=== PATIENT | male | born 1965 | race Caucasian/White ===

== ENCOUNTER 2018-07-26 11:08 | Inpatient (IN) ==
--- NOTE | 2018-07-26 11:23 | ERNOTE ---
Date of Service: 07/26/18 Time Seen by Provider: 07/26/18 11:23 Stated Complaint: uri for four days Presenting Symptoms:: cough Source: patient Exam Limitations: no limitations Immunizations: IMMUNIZATION HX Immunizations Up to Date Yes Allergies/Adverse Reactions: Allergies No Known Allergies Allergy (Verified 07/26/18 12:24) Home Medications: HOME MEDICATIONS NK 07/26/18 [Last Taken Unknown] - Pain Score Pain Score #1 Pain Score: 0 - History of Present Ilness Narrative: The patient is a 52 year old male who presents for dyspnea with nonproductive cough which has been present since 07/21/18. There are associated symptoms of fatigue and fever. The patient denies pain. There are no alleviating factors. There are no aggravating factors. Previous treatments have included: current treatment with Azithromycin and Prednisone. The past medical history includes: noncontributory. The social history is positive for alcohol abuse. The patient has had ill contacts at home with exposure to influenza A. Modifying Factors - Worsens: Reports: coughing, deep breath, lying down Associated Symptoms: Reports: cough, shortness of breath, fever/chills. Denies: chest pain/soreness, nasal congestion, nasal drainage, dizziness Review of Systems - Review of Systems Constitutional: Present: fever, chills, fatigue EYE: Present: no symptoms reported ENT: Present: no symptoms reported. Absent: ear pain, nose congestion, nasal drainage, sore throat Respiratory: Present: shortness of breath, cough Cardiology: Present: no symptoms reported. Absent: chest pain Gastrointestinal/Abdominal: Present: nausea, vomiting, diarrhea. Absent: abdominal pain Genitourinary: Present: no symptoms reported. Absent: dysuria Musculoskeletal: Present: no symptoms reported Skin: Present: no symptoms reported. Absent: rash Neurological: Present: no symptoms reported Endocrine: Present: no symptoms reported Hematologic/Lymphatic: Present: no symptoms reported Psych: Present: no symptoms reported All Other Systems: All systems neg except as marked Medical History (Last Reviewed 07/26/18 @ 12:31 by ASHOK Hull) No pertinent past medical history Surgical History: Surgical History (Last Reviewed 07/26/18 @ 12:31 by ASHOK Hull) No pertinent past surgical history Family History: Family History (Last Reviewed 07/26/18 @ 12:31 by ASHOK Hull) Other No pertinent family history Social History: Preferred Language Yakut Alcohol Use heavy Drug Use none No Social History Section defined Physical Exam - Physical Exam General Appearance: Present: wd/wn, moderate distress Head Exam: Present: normal inspection Respiratory: Present: accessory muscle use, decreased breath sounds - diffuse bilateral Cardiovascular/Chest: Present: no murmur, normal peripheral pulses, tachycardia Gastrointestinal/Abdominal: Present: normal bowel sounds, nontender, nondistended, soft, no organomegaly Neurological Exam: Present: alert, oriented, normal mood/affect Skin Exam: Present: normal color, diaphoresis Progress - Date and Time Seen: Date and Time: 07/26/18 12:51 Discussed case with , patient will be admitted for continued treatment for bi-basilar pneumonia, renal insuff and failed outpatient treatment. Patient tachycardic with tachypneia and hypoxia but has remained normotensive during ER visit. - Results and Orders Patient's Lab Results:: I have reviewed the patient's lab results. - Vital Signs Patient's Vital Signs:: I have reviewed the patient's vital signs. Vital Signs: Vital Signs 07/26/18 11:17 Temperature 38.2 C H Respiratory Rate 22 H Blood Pressure 143/85 H - X-Ray X-Ray #1 X-Ray: chest Interpretation: Reviewed by me X-ray Comments: Bi-basilar pneumonia. Reviewed with . - Progress/Reassessment Chief Complaint: Upper Respiratory Symptoms Departure Clinical Impression: Failure of outpatient treatment, Renal insufficiency, Elevated liver enzymes, Alcohol abuse Pneumonia Qualifiers: Pneumonia type: due to unspecified organism Laterality: bilateral Lung location: lower lobe of lung Qualified Code(s): J18.1 - Lobar pneumonia, unspecified organism - Departure Disposition: Still a patient Condition: Fair
[2018-07-26] MEDS ORDERED: ALBUTEROL SULFATE 2.5 MG/0.5 ML VIAL.NEB IH ONE (11:30)
[2018-07-26] MEDS ORDERED: ACETAMINOPHEN 500 MG TABLET PO ONE (11:33)
[2018-07-26 11:48] LABS: Hematocrit 49.3 % (42.0-52.0); Mean Cell Volume 91.6 fl (78-100); Mean Corpuscular Hemoglobin 31.6 pg (27-31); Mean Corpuscular Hgb Conc 34.5 g/dl (32-36); Mean Platelet Volume 11.8 fl (8-11.3); Neutrophil # 5.5 K/mm3 (1.3-6.0); Platelet Count 133 K/mm3 (150-450); Red Blood Count 5.38 M/mm3 (4.7-6.0); Red Cell Distribution Width 12.4 % (11.5-14.0); White Blood Count 6.3 K/mm3 (4.0-10.5)
[2018-07-26 12:00] LABS: Albumin * 2.5 gm/dl (3.4-5.0); Anion Gap 13.7 mmol/L (6.8-13.8); BUN/Creatinine Ratio 15.4 (9.0-21.6); Bilirubin, Total 0.8 mg/dL (0.0-1.1); Ca. Corrected For Albumin 9.3 mg/dL (8.4-10.2); Calcium * 8.4 mg/dL (7.9-10.9); Carbon Dioxide 27.7 mmol/L (24-32.6); Potassium 3.4 mmol/L (3.4-4.6)
[2018-07-26] MEDS: NORMAL SALINE 1,000 ML IV SCH ×2 (12:00→13:06)
[2018-07-26] MEDS ORDERED: cefTRIAXone SODIUM 1,000 MG/100 ML BAG IV ONE (12:14)
[2018-07-26] MEDS ORDERED: NORMAL SALINE 1,000 ML IV PRN ×2 (12:55→15:26)
[2018-07-26] MEDS ORDERED: BENZONATATE 100 MG CAPSULE PO PRN (14:43)
[2018-07-26] MEDS: AZITHROMYCIN 250 MG TABLET PO SCH (15:10)
[2018-07-26] MEDS ORDERED: AZITHROMYCIN 250 MG TABLET PO SCH (15:32)
--- NOTE | 2018-07-26 15:54 | HP ---
Chief Complaint - Chief Complaint Date of Service: 07/26/18 Time of Service: 14:45 Chief Complaint: Cough, shortness of breath History of Present Illness: Kimani Acevedo is a 52-year-old male who presented to ER with cough and shortness of breath. He was seen and the walk-in clinic on July 23. The onset of his symptoms was 2 days earlier on the with shortness of breath and fever. On the he was started on azithromycin and prednisone but his condition has progressed and he presented to ER today. His past medical history includes alcohol abuse. Today's labs showed creatinine elevated at 1.43. His AST was 922 and ALT of 277. The alkaline phosphatase, bilirubin, and albumin are all okay. His lactic acid is elevated at 2.8 and the pro-calcitonin is elevated at 1.83. His oxygen saturation on arrival was 83% on room air and he was titrated to 4 L nasal cannula to get his O2 sat at 93%. He also had a fluid bolus of 1 L normal saline. He was given a gram of Rocephin in the emergency room. Since he failed outpatient therapy and clinically, radiographically, and lab coronado appears to have a pneumonia is admitted to regular hospital inpatient stay. Medical History (Last Updated 07/26/18 @ 13:50 by Neeta Mccarthy RN) No pertinent past medical history Skin cancer of forehead Surgical History: Surgical History (Last Reviewed 07/26/18 @ 13:51 by Neeta Mccarthy RN) No pertinent past surgical history Family History: Family History (Last Updated 07/26/18 @ 13:58 by Neeta Mccarthy RN) Other Acute hemorrhagic infarction of brain Aortic aneurysm and dissection Cancer, colon Diabetes mellitus, insulin dependent (IDDM), controlled Hypertension No pertinent family history Patient's brother is in good health Patient's brother is still living Patient's father is Patient's mother is Patient's sister is father Social History: Patient Lives/Resources With Spouse 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 Smoking Status Former smoker Have you smoked in the past 12 No months Do you dip or chew tobacco No Alcohol Use heavy Drug Use none No Social History Section defined Review Of Systems (GEN) - Review of Systems Generalized/Overall Review: Present: Weakness, Fever, Malaise EENTM: Present: No Symptoms Reported Respiratory: Present: Cough, Shortness of Breath, Wheezing Cardiac: Present: No Symptoms Reported. Absent: Chest Pain, Edema, Palpitations, Syncope Abdominal: Present: No Symptoms Reported Genitourinary: Present: No Symptoms Reported Musculoskeletal: Present: No Symptoms Reported Neurological: Present: No Symptoms Reported Skin: Present: No Symptoms Reported Endocrine: Present: No Symptoms Reported Misc: All systems neg except as marked Immunizations: IMMUNIZATION HX Immunizations Up to Date Yes Allergies/Adverse Reactions: Allergies Allergy/AdvReac Type Severity Reaction Status Date / Time No Known Allergies Allergy Verified 07/26/18 12:24 Home Medications: HOME MEDICATIONS Azithromycin 250 mg PO DAILY 07/26/18 [Last Taken 07/25/18 09:00] Codeine Phosphate/Guaifenesin [Cheratussin AC Syrup] 5 ml PO Q6H PRN 07/26/18 [Last Taken Unknown] predniSONE [Prednisone] 20 mg PO DAILY 07/26/18 [Last Taken Unknown] Exam - Exam Vital Signs: Vital Signs - Last Taken Temp 37.8 C 07/26/18 12:59 Pulse 82 07/26/18 12:59 Resp 20 07/26/18 12:59 BP 127/59 07/26/18 12:59 Pulse Ox 94 07/26/18 12:59 Constitutional: Present: Alert, Oriented x3, Cooperative, Well developed, Well nourished, Moderate distress, Middle aged, Obese ENT Exam: Present: normal ENT inspection, hearing grossly normal, pharynx normal, TMs normal, hard of hearing Eye Exam: bilateral eye: normal inspection, PERRL, EOMI Neck: Present: non-tender, full range of motion, supple, normal inspection, trachea midline, limited range of motion Back Exam: Present: normal inspection, no CVA tenderness, no vertebral tenderness Breasts: Present: Nontender Respiratory: Present: crackles, rhonchi, wheezing, expiration (prolonged), inspiration Cardiovascular/Chest: Present: normal peripheral pulses, regular rate, rhythm, no chest tenderness, no edema, no gallop, no JVD, no murmur, no rub Peripheral Pulses: carotid (R): 2+, carotid (L): 2+, radial (R): 2+, radial (L): 2+ Abdomen: Present: Normal bowel sounds, soft, nontender, nondistended, no rebound tenderness, no hepatospenomegaly, no masses, obese /Rectal: Present: Exam deferred Extremity: Present: normal range of motion, non-tender, normal inspection, no pedal edema, no calf tenderness, normal capillary refill Skin Exam: Present: normal color, warm/dry, no cyanosis Lymphatic: Present: no adenopathy Neurologic: 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: pump 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 II-XII nml as tested Appearance: Present: appropriate appearance, appropriate insight, neat Eye contact: Present: cooperative, good eye contact, normal speech Thoughts: Present: normal thought pattern, no apparent hallucination Diagnostic Studies: Abnormal Lab Results 07/26/18 07/26/18 07/26/18 Range/Units 11:33 11:33 11:33 MCH 31.6 H (27-31) pg Plt Count 133 L (150-450) K/mm3 MPV 11.8 H (8-11.3) fl Neutrophils % 88.0 H (42-75.0) % Lymphocytes % 6.7 L (20-51) % Lymphocytes # 0.42 L (1.5-3.5) k/mm3 Chloride 94 L (97-106) mmol/L Creatinine 1.43 H (0.4-1.4) mg/dL Est GFR (Non-Af Amer) 55 L (60-130) mL/min Random Glucose 130 H (70-110) mg/dL Lactic Acid, Venous 2.8 H* (0.4-2.0) mmol/L AST 922 H (0-48) U/L ALT 277 H (19-67) U/L Albumin 2.5 L (3.4-5.0) gm/dl Procalcitonin (0.05-0.50) ng/mL 07/26/18 Range/Units 11:33 MCH (27-31) pg Plt Count (150-450) K/mm3 MPV (8-11.3) fl Neutrophils % (42-75.0) % Lymphocytes % (20-51) % Lymphocytes # (1.5-3.5) k/mm3 Chloride (97-106) mmol/L Creatinine (0.4-1.4) mg/dL Est GFR (Non-Af Amer) (60-130) mL/min Random Glucose (70-110) mg/dL Lactic Acid, Venous (0.4-2.0) mmol/L AST (0-48) U/L ALT (19-67) U/L Albumin (3.4-5.0) gm/dl Procalcitonin 1.83 H (0.05-0.50) ng/mL Laboratory Results WBC 6.3 K/mm3 (4.0-10.5) 07/26/18 11:33 RBC 5.38 M/mm3 (4.7-6.0) 07/26/18 11:33 Hgb 17.0 gm/dL (13.5-18.0) 07/26/18 11:33 Hct 49.3 % (42.0-52.0) 07/26/18 11:33 MCV 91.6 fl (78-100) 07/26/18 11:33 MCH 31.6 pg (27-31) H 07/26/18 11:33 MCHC 34.5 g/dl (32-36) 07/26/18 11:33 RDW 12.4 % (11.5-14.0) 07/26/18 11:33 Plt Count 133 K/mm3 (150-450) L 07/26/18 11:33 MPV 11.8 fl (8-11.3) H 07/26/18 11:33 Immature Gran % (Auto) 0.30 % (0.001-0.429) 07/26/18 11:33 Immature Gran # (Auto) 0.02 K/mm3 (0.000-0.0310) 07/26/18 11:33 Neutrophils % 88.0 % (42-75.0) H 07/26/18 11:33 Lymphocytes % 6.7 % (20-51) L 07/26/18 11:33 Monocytes % 4.8 % (0.0-9) 07/26/18 11:33 Eosinophils % 0.0 % (0.0-3.0) 07/26/18 11:33 Basophils % 0.2 % (0.0-1.0) 07/26/18 11:33 Nucleated RBC % 0.0 k/mm3 (0-1) 07/26/18 11:33 Neutrophils # 5.5 K/mm3 (1.3-6.0) 07/26/18 11:33 Lymphocytes # 0.42 k/mm3 (1.5-3.5) L 07/26/18 11:33 Monocytes # 0.3 k/mm3 (0.0-1.0) 07/26/18 11:33 Eosinophils # 0.0 k/mm3 (0.0-0.7) 07/26/18 11:33 Absolute Basophils 0.0 k/mm3 (0.0-0.1) 07/26/18 11:33 Sodium 132 mmol/L (132-142) 07/26/18 11:33 Plasma Sodium 132 mmol/L (130-142) 07/26/18 11:33 Potassium 3.4 mmol/L (3.4-4.6) 07/26/18 11:33 Chloride 94 mmol/L (97-106) L 07/26/18 11:33 Carbon Dioxide 27.7 mmol/L (24-32.6) 07/26/18 11:33 Anion Gap 13.7 mmol/L (6.8-13.8) 07/26/18 11:33 BUN 22 mg/dL (6-23) 07/26/18 11:33 Creatinine 1.43 mg/dL (0.4-1.4) H 07/26/18 11:33 Est GFR (Non-Af Amer) 55 mL/min (60-130) L 07/26/18 11:33 BUN/Creatinine Ratio 15.4 (9.0-21.6) 07/26/18 11:33 Random Glucose 130 mg/dL (70-110) H 07/26/18 11:33 Lactic Acid, Venous 1.7 mmol/L (0.4-2.0) 07/26/18 14:31 Calcium 8.4 mg/dL (7.9-10.9) 07/26/18 11:33 Calcium Adj for Albumin 9.3 mg/dL (8.4-10.2) 07/26/18 11:33 Total Bilirubin 0.8 mg/dL (0.0-1.1) 07/26/18 11:33 AST 922 U/L (0-48) H 07/26/18 11:33 ALT 277 U/L (19-67) H 07/26/18 11:33 Alkaline Phosphatase 103 U/L (50-170) 07/26/18 11:33 Total Protein 8.0 gm/dL (6.2-8.2) 07/26/18 11:33 Albumin 2.5 gm/dl (3.4-5.0) L 07/26/18 11:33 Procalcitonin 1.83 ng/mL (0.05-0.50) H 07/26/18 11:33 Influenza Type A Ag Negative (NEGATIVE) 07/26/18 11:40 Influenza Type B Ag Negative (NEGATIVE) 07/26/18 11:40 Assessment/Plan - Narrative Narrative: 1. Aggressive pulmonary toilet with RT treatments and using a flutter device in between. 2. IV antibiotics Rocephin and oral with Zithromax 3. Add Mucinex 600 mg twice a day 4. Titrate oxygen to keep O2 sat above 92% 5. CT of the chest tomorrow 6. Tessalon Perles and codeine with guaifenesin for cough and 7. EKG and consider echocardiography - Assessment/Plan (1) Hypoxemia Problem: Acute (2) Pneumonia Problem: Acute Qualifiers: Pneumonia type: due to unspecified organism Laterality: bilateral Lung location: lower lobe of lung Qualified Code(s): J18.1 - Lobar pneumonia, unspecified organism (3) Failure of outpatient treatment Problem: Acute (4) Renal insufficiency Problem: Acute (5) Elevated liver enzymes Problem: Acute (6) Alcohol abuse Problem: Chronic
[2018-07-26] MEDS ORDERED: CODEINE PHOSPHATE/GUAIFENESIN 5 ML UDC PO PRN (16:12)
[2018-07-26] MEDS: ALBUTEROL SULFATE/IPRATROPIUM 3 ML NEBU IH PRN ×2 (18:31→23:38)
[2018-07-26] MEDS ORDERED: FUROSEMIDE 10 MG/ML VIAL IV ONE (19:58)
[2018-07-26] MEDS ORDERED: LORazepam 2 MG/ML DISP.SYRIN IV PRN (21:56)
[2018-07-27] MEDS ORDERED: METHYLPREDNISOLONE SOD SUCC/PF 125 MG/2 ML VIAL IV ONE (00:30)
[2018-07-27] MEDS: ALBUTEROL SULFATE/IPRATROPIUM 3 ML NEBU IH SCH ×3 (02:06→11:25)
[2018-07-27 06:29] LABS: Anion Gap 12.5 mmol/L (6.8-13.8); BUN/Creatinine Ratio 16.5 (9.0-21.6); Calcium * 8.1 mg/dL (7.9-10.9); Carbon Dioxide 24.7 mmol/L (24-32.6); Potassium 3.2 mmol/L (3.4-4.6)
[2018-07-27 06:39] LABS: Hemoglobin 16.9 gm/dL (13.5-18.0); Mean Cell Volume 90.7 fl (78-100); Mean Corpuscular Hemoglobin 31.9 pg (27-31); Mean Corpuscular Hgb Conc 35.2 g/dl (32-36); Mean Platelet Volume 12.3 fl (8-11.3); Neutrophil # 5.3 K/mm3 (1.3-6.0); Neutrophil % 88.2 % (42-75.0); Platelet Count 115 K/mm3 (150-450); Red Blood Count 5.29 M/mm3 (4.7-6.0); Red Cell Distribution Width 12.6 % (11.5-14.0)
[2018-07-27] MEDS: AZITHROMYCIN 250 MG TABLET PO SCH (08:55)
[2018-07-27] MEDS ORDERED: POTASSIUM CHLORIDE 20 MEQ TABLET.SA PO SCH (10:15)
[2018-07-27] MEDS ORDERED: APIXABAN 5 MG TABLET PO SCH (11:15)
--- NOTE | 2018-07-27 12:49 | DS ---
Transfer Discharge Summary - Course Description of Stay: Patient with PMHx of HTN and significant alcohol use presented for increased shortness of breath. He was seen earlier in the week, and given azithromycin and prednisone. He has had a baseline cough, and shortness of breath with activity for months according to his . He was admitted for treatment of pneumonia and renal insufficiency, and failed outpatient treatment. His oxygen requirements increased after admission, and he was placed on CPAP. ABG showed his oxygen levels did not improve significantly with the CPAP, settings of 5 and 45%. Pulse ox showed 90%. Initial CXR showed "Bilateral perihilar and bibasilar heterogeneous opacities," and CT chest showed diffuse bilateral airspace opacities and consolidation most likely representing multifocal pneumonia, however can not completely exclude ARDS. With his hypoxemia, bilateral infiltrates, acute decompensation yesterday evening, there is significant clinical concern for ARDS, and transfer process initiated, as we do not have a truckload checker or an ICU at our facility. His initial temperature was 38.2, and he remained afebrile for the rest of his stay. WBC not elevated at 6.0, procalcitonin elevated at 1.83, initial lactate of 2.8, normalized to 1.7. D dimer was elevated at 1.89. He did not have risk factors for a PE, but with his dyspnea, treatment was statred for PE. He was given a dose of 10 mg eliquis prior to discussing with the accepting hospitalist at [facility]. He did not show signs of alcohol withdrawal. Procedures Performed: none - Results and Findings Results and Findings: Laboratory Results - last 24 hr 07/26/18 07/26/18 07/26/18 14:31 19:08 19:56 WBC RBC Hgb Hct MCV MCH MCHC RDW Plt Count MPV Immature Gran % (Auto) Immature Gran # (Auto) Neutrophils % Lymphocytes % Monocytes % Eosinophils % Basophils % Nucleated RBC % Neutrophils # Lymphocytes # Monocytes # Eosinophils # Absolute Basophils D-Dimer pCO2 27.6 L pO2 44.8 L HCO3 20.5 L Total CO2 21.4 Base Excess -1.2 ABG pH 7.49 H ABG O2 Sat (Measured) 85.1 L Sodium Plasma Sodium Potassium Chloride Carbon Dioxide Anion Gap BUN Creatinine Est GFR (Non-Af Amer) BUN/Creatinine Ratio Random Glucose Lactic Acid, Venous 1.7 Calcium B-Natriuretic Peptide 206 H 07/26/18 07/27/18 07/27/18 23:54 06:15 06:15 WBC 6.0 RBC 5.29 Hgb 16.9 Hct 48.0 MCV 90.7 MCH 31.9 H MCHC 35.2 RDW 12.6 Plt Count 115 L MPV 12.3 H Immature Gran % (Auto) 0.30 Immature Gran # (Auto) 0.02 Neutrophils % 88.2 H Lymphocytes % 8.1 L Monocytes % 3.2 Eosinophils % 0.0 Basophils % 0.2 Nucleated RBC % 0.0 Neutrophils # 5.3 Lymphocytes # 0.48 L Monocytes # 0.2 Eosinophils # 0.0 Absolute Basophils 0.0 D-Dimer pCO2 32.1 L pO2 52.9 L HCO3 22.9 Total CO2 23.9 Base Excess 0.3 ABG pH 7.47 H ABG O2 Sat (Measured) 89.8 L Sodium 133 Plasma Sodium 134 Potassium 3.2 L Chloride 99 Carbon Dioxide 24.7 Anion Gap 12.5 BUN 18 Creatinine 1.09 Est GFR (Non-Af Amer) 76 D BUN/Creatinine Ratio 16.5 Random Glucose 148 H Lactic Acid, Venous Calcium 8.1 B-Natriuretic Peptide 07/27/18 07/27/18 06:15 11:54 WBC RBC Hgb Hct MCV MCH MCHC RDW Plt Count MPV Immature Gran % (Auto) Immature Gran # (Auto) Neutrophils % Lymphocytes % Monocytes % Eosinophils % Basophils % Nucleated RBC % Neutrophils # Lymphocytes # Monocytes # Eosinophils # Absolute Basophils D-Dimer 1.89 H pCO2 36.1 pO2 50.6 L HCO3 23.0 Total CO2 24.2 H Base Excess -0.9 ABG pH 7.42 ABG O2 Sat (Measured) 86.9 L Sodium Plasma Sodium Potassium Chloride Carbon Dioxide Anion Gap BUN Creatinine Est GFR (Non-Af Amer) BUN/Creatinine Ratio Random Glucose Lactic Acid, Venous Calcium B-Natriuretic Peptide - Medications Medications: Active Medications Albuterol/Ipratropium (Duoneb 2.5-0.5mg/3ml Soln) 3 ml IH Q4HRT [facility] Stop: 08/26/18 03:01 Last Admin: 07/27/18 11:25 Dose: 3 ml Documented by: Azithromycin (Zithromax) 250 mg PO DAILY [facility]; Protocol Stop: 07/28/18 09:01 Last Admin: 07/27/18 08:55 Dose: 250 mg Documented by: Benzonatate (Tessalon) 200 mg PO QID PRN PRN Reason: Cough Stop: 08/25/18 14:44 Last Admin: 07/26/18 15:10 Dose: 200 mg Documented by: Guaifenesin (Mucinex) 600 mg PO BID [facility] Stop: 08/25/18 21:01 Last Admin: 07/27/18 08:55 Dose: 600 mg Documented by: Ceftriaxone Sodium 1,000 mg/ (Dextrose/Water) 100 mls @ 200 mls/hr IV Q24H PAT; Protocol Stop: 08/25/18 15:31 Last Infusion: 07/26/18 16:53 Dose: Infused Documented by: Lorazepam (Ativan) 1 mg IV Q6H PRN PRN Reason: Anxiety Stop: 08/25/18 22:01 Last Admin: 07/26/18 22:02 Dose: 1 mg Documented by: Potassium Chloride (K-Dur) 40 meq PO DAILY [facility] Stop: 08/26/18 10:16 Last Admin: 07/27/18 11:20 Dose: 40 meq Documented by: Discontinued Medications Acetaminophen (Tylenol) 1,000 mg PO ONCE ONE Stop: 07/26/18 11:34 Last Admin: 07/26/18 11:39 Dose: 1,000 mg Documented by: Albuterol Sulfate (Albuterol Sulfate 2.5 Mg/0.5ml) 2.5 mg IH ONCE ONE Stop: 07/26/18 11:31 Last Admin: 07/26/18 11:39 Dose: 2.5 mg Documented by: Albuterol/Ipratropium (Duoneb 2.5-0.5mg/3ml Soln) 3 ml IH Q4HRT PRN PRN Reason: Shortness Of Breath/Wheezing Stop: 08/25/18 16:22 Last Admin: 07/26/18 23:38 Dose: 3 ml Documented by: Apixaban (Eliquis) 10 mg PO BID [facility] Stop: 08/03/18 11:16 Last Admin: 07/27/18 11:20 Dose: 10 mg Documented by: Azithromycin (Zithromax) 250 mg PO DAILY [facility]; Protocol Stop: 07/31/18 15:33 Last Admin: 07/26/18 16:03 Dose: Not Given Documented by: Furosemide (Lasix) 40 mg IV ONCE ONE Stop: 07/26/18 19:59 Last Admin: 07/26/18 20:17 Dose: 40 mg Documented by: Sodium Chloride (Sodium Chloride 0.9%) 1,000 mls @ 999 mls/hr IV .Q1H1M PAT Stop: 08/25/18 11:31 Last Admin: 07/26/18 13:06 Dose: Not Given Documented by: Ceftriaxone Sodium (Rocephin 1000 Mg Er Piggyback) 1,000 mg in 100 mls @ 200 mls/hr IV ONCE ONE Stop: 07/26/18 12:43 Last Infusion: 07/26/18 12:49 Dose: Infused Documented by: Sodium Chloride (Sodium Chloride 0.9%) 1,000 mls @ 126 mls/hr IV .Q7H57M PRN PRN Reason: HYDRATION Stop: 08/25/18 12:56 Last Infusion: 07/26/18 20:16 Dose: 0 mls/hr Documented by: Influenza Virus Vaccine Quadrival (Flulaval Quad [id number] Syringe) 60 mcg IM .ONCE ONE Stop: 07/26/18 17:01 Last Admin: 07/26/18 16:23 Dose: 60 mcg Documented by: Methylprednisolone Sodium Succinate (Solu-Medrol (Pf)) 80 mg IV ONCE ONE Stop: 07/27/18 00:31 Last Admin: 07/27/18 00:12 Dose: 80 mg Documented by: - Disposition Disposition: Short Term Hospital Inpatient Condition: Poor Discharge Date: 07/27/18 Discharge Time: 12:49
[2018-07-27 14:15] VITALS: BP 158/80
== END 2018-07-27 14:00 | disposition short-term general hospital (02) | DRG 194 ==
LOC: ER 11:08 → MS 12:48
PROVIDERS: ADMIT Family Medicine; ATTEND Family Medicine
CPT/HCPCS: 36415; 36600; 71020; 71046; 71260; 80048; 80053; 82803; 83519; 83605; 83880; 84145; 85025; 85379; 87040; 87400; 87449; 90686; 94640; 94660; 94664